=== PATIENT | female | born 1945 | race Caucasian/White ===

== ENCOUNTER → 2020-08-18 | Day surgery (SDC) | payer MEDICARE, OTHER ==
[~2020-08-18] MED LIST: AMLODIPINE BESYL5 MG PO; ATENOLOL50 MG PO; B COMPLEX1 EACH PO; CIPRO500 MG PO; COQ-10100 MG PO; CRANBERRY250 MG PO; FAMOTIDINE20 MG PO; FENTANYL CITRATE/PF 100MCG/2 ML INJ ONE; FISH OIL 1,0001 EAC2 PO; FISH OIL 500 M1 EAC1 PO; LIDOCAINE HCL 2% LOCAL INJ 5 ML SDV VIAL INJ ONE; LISINOPRIL10 MG PO; LOSARTAN POTAS100 MG PO; MIDAZOLAM HCL 2 MG/2 ML VIAL ONE; ONDANSETRON HCL INJ 2MG/ML 2ML 2 MG/ML VIAL ONE; PROPOFOL IV EMULSION 10 MG/ML 20 ML VIAL ONE; SIMVASTATIN20 MG PO; VITAMIN B1 PO; VITAMIN B122500 MCG PO; VITAMIN D3 PO; VITAMIN E400 UNI2 PO; ZINC PO
[2020-08-18 11:23] VITALS: BP 125/77
== END | disposition home or self-care (01) ==
LOC: OR 07:44
PROVIDERS: ATTEND Internal Medicine Gastroenterology
DX: K29.50 Unspecified chronic gastritis without bleeding (principal); K21.00 Gastro-esophageal reflux disease with esophagitis, without bleeding; K44.9 Diaphragmatic hernia without obstruction or gangrene; K57.30 Diverticulosis of large intestine without perforation or abscess without bleeding; K64.8 Other hemorrhoids; I10 Essential (primary) hypertension; E78.5 Hyperlipidemia, unspecified; R01.1 Cardiac murmur, unspecified; S00.252A Superficial foreign body of left eyelid and periocular area, initial encounter; X58.XXXA Exposure to other specified factors, initial encounter; Z88.6 Allergy status to analgesic agent; Z88.2 Allergy status to sulfonamides; Z88.7 Allergy status to serum and vaccine; Z88.8 Allergy status to other drugs, medicaments and biological substances; Z01.810 Encounter for preprocedural cardiovascular examination; Z01.812 Encounter for preprocedural laboratory examination; Z11.59 Encounter for screening for other viral diseases; Z87.01 Personal history of pneumonia (recurrent)
CPT/HCPCS: 43239; 45378; 88305; 88312; 93005; J2001; J2250; J2405; J2704; J3010; U0002